=== PATIENT | male | born 1990 | race American Indian/Alaskan Native ===

== ENCOUNTER 2018-01-09 22:19 | Emergency (ER) | payer MEDICAID ==
[2018-01-10 00:50] VITALS: BP 135/67
[2018-01-10] MEDS ORDERED: MOTRIN PO ONE (06:26)
--- NOTE | 2018-01-10 06:26 | Emergency Department Report ---
Chief Complaint: Back Pain/Injury Stated Complaint: BACK PAIN Time Seen by Provider: 01/10/18 06:24 - HPI History of Present Illness: Patient reported that he slipped and fell from ground level yesterday and he injured his tailbone and is having pain to tailbone a 10 out of 10. Denies any head or neck injury. - ROS Review of Systems: All systems are negative unless stated in HPI above - Exam Vital Signs: Vital Signs 01/10/18 00:47 Temperature 98.4 F Pulse Rate 70 Respiratory 16 Rate Blood Pressure 135/67 O2 Sat by Pulse 100 Oximetry Physical Exam: Gen.: This is 27-year-old male well-nourished well-developed nontoxic in appearance that appears to be in pain. Back: No rash, full range of motion. No deformity noted. Patient able to ambulate. Tenderness to palpate to coccyx area MSE screening note: Focused history and physical exam performed. Due to findings the following was ordered: ED Medical Decision Making - Medical Decision Making MDM: Patient screened by medical provider and x-rays ordered. Patient to receive Motrin 800 mg by mouth. He will be seen by oncoming provider. ED Disposition for MSE Condition: Stable Referrals: PRIMARY CARE, [Primary Care Provider] - 3-5 Days
--- NOTE | 2018-01-10 06:57 | XRay Report ---
FINAL REPORT EXAM: XR SPINE SACRUM/COCCYX 2+V HISTORY: fall with tail bone pain 08/22 TECHNIQUE: Three views of the sacrum and coccyx were obtained FINDINGS: There is no evidence of fracture or soft tissue injury. The SI joints appear normal. IMPRESSION: Within normal limits
--- NOTE | 2018-01-10 07:06 | Emergency Department Report ---
ED Back Pain/Injury HPI - General Chief Complaint: Back Pain/Injury Stated Complaint: BACK PAIN Time Seen by Provider: 01/10/18 06:24 Source: patient Limitations: No Limitations - History of Present Illness Initial Comments: Patient reported that he slipped and fell from ground level yesterday and he injured his tailbone and is having pain to tailbone a 10 out of 10. Denies any head or neck injury. Denies any fever or chills. Denies any nausea or vomiting. Denies any loss of bowel or bladder control. Denies any numbness or tingling to her extremities. Pain is achy into his tailbone better rest worse with movement. Denies taking any [id number] pain medication. Denies any difficulty in walk-in. MD Complaint: back pain (patient reports fall with back pain), fall Onset/Timin -: days(s) Similar Symptoms Previously: No Place: street Radiation: none Severity: severe Severity scale (0 -10): 10 Quality: aching Consistency: constant Improves With: immobilization Worsens With: movement, sitting upright, walking Context: fall Associated Symptoms: denies: confusion, weakness, chest pain, numbness, difficulty walking, cough, difficulty urinating, diaphoresis, incontinence, fever/chills, constipation, headaches, malaise, nausea/vomiting, rash, seizure, shortness of breath, syncope Treatments Prior to Arrival: other (none) - Related Data Previous Rx's Medication Instructions Recorded Last Taken Type Acetaminophen/Codeine [Tylenol 1 tab PO Q6H PRN #9 tab 01/10/18 Unknown Rx /Codeine # 3 tab] Ibuprofen [Motrin] 600 mg PO Q8H PRN #12 tablet 01/10/18 Unknown Rx Allergies Allergy/AdvReac Type Severity Reaction Status Date / Time No Known Allergies Allergy Unverified 01/10/18 00:50 ED Review of Systems ROS: Stated complaint: BACK PAIN Other details as noted in HPI Comment: All other systems reviewed and negative Constitutional: no symptoms reported Respiratory: no symptoms reported Cardiovascular: denies: chest pain, palpitations, dyspnea on exertion, edema, syncope, paroxysmal nocturnal dyspnea Gastrointestinal: denies: abdominal pain, nausea, vomiting, constipation Genitourinary: denies: dysuria, hematuria, testicular pain, testicular mass Skin: denies: rash Neurological: denies: headache, weakness, numbness, paresthesias, confusion, abnormal gait, vertigo ED Past Medical Hx - Past Medical History Medical history: no medical history Surgical history: no surgical history Psychiatric history: no pertinent history Family history: no significant family history - Social History Smoking Status: Never Smoker Alcohol use: occasionally Drug use: marijuana ED Back Pain Physical Exam - Exam General: Vital signs noted. No distress. Alert and acting appropriately. This is a 27-year-old male well-nourished well-developed, facial grimace and due to pain per patient. He is nontoxic in appearance Lungs: Clear to auscultate bilaterally, no rhonchi wheezes or rales. Extremity: No Clubbing, cyanosis or edema. +2 pulses in all extremities and no neurovascular compromise Musculoskeletal: Full range of motion to all extremities, ambulating without any difficulties. No abrasion, laceration or contusion noted to extremities. Cardiovascular: S1, S2. Regular rate and rhythm negative murmur Skin: Clean dry and intact. No rashes or lesions. Neurological: Alert and oriented 3, no motor or sensory deficit, gait is normal , negative Romberg, negative pronator drift. GCS is 15. Speech is clear. No facial drooping. Normal reflexes Back/Abdomen: Yes Sacroiliac Tenderness (tender to palpate at coccyx area.), No Abdominal Tenderness (abdomen soft, nontender to palpation in all quadrants and no guarding or rebound tenderness), No Perithoracic Tenderness, No Perilumbar Tenderness, No Flank Tenderness, No Straight Leg Raise Pain (bilaterally) Neuro: Yes Normal Sensation, Yes Normal DTR's, Yes Normal Gait, No Motor Weakness ED Course Vital Signs 01/10/18 00:47 Temperature 98.4 F Pulse Rate 70 Respiratory 16 Rate Blood Pressure 135/67 O2 Sat by Pulse 100 Oximetry - Reevaluation(s) Reevaluation #1: 01/10/18 07:06 Patient received Motrin 800 mg emergency room for coccyx pain we'll relief of pain. Ed Back Pain Tests - Tests Tests: Normal X Rays (x-ray of sacral coccyx reveal no acute findings. Normal exam) ED Medical Decision Making - Radiology Data Radiology results: report reviewed X-ray sacral coccyx reveals normal exam without any acute fracture. - Medical Decision Making ED course: Patient here status post ground level fall yesterday complaining of pain to his tailbone that is tender to 10 and given worse. Physical findings for normal back in neurological exam with some tenderness to palpate the coccyx area. Patient was given Motrin 800 mg emergency room for some relief of pain. Patient had x-rays sacral coccyx which revealed normal examination. This was discussed patient he voiced understanding and I told him he needs to rest for a couple days and I will give him prescription for Motrin for mild pain and Tylenol 3 for moderate to severe pain. Patient discharged home in stable condition with prescription for Motrin and Tylenol 3 and to follow up with [facility] in 2 days. Critical care attestation.: If time is entered above; I have spent that time in minutes in the direct care of this critically ill patient, excluding procedure time. ED Disposition Clinical Impression: Fall from ground level, Pain in the coccyx Disposition: DC-01 TO HOME OR SELFCARE Is pt being admited?: No Does the pt Need Aspirin: No Condition: Stable Instructions: Coccyx Injury (ED), Musculoskeletal Pain (ED) Additional Instructions: Please follow up with outside Medical Center for primary care and status post fall injury Please do not or operate heavy machinery while taking Tylenol No. 3 as this medication causes drowsiness If you develop, loss of bowel or bladder function, increasing pain that is not relieved by medication, difficulty walking and, numbness and tingling to extremities he can return to emergency room. Prescriptions: Acetaminophen/Codeine [Tylenol /Codeine # 3 tab] 1 tab PO Q6H PRN #9 tab PRN Reason: Pain, Moderate (4-6) Ibuprofen [Motrin] 600 mg PO Q8H PRN #12 tablet PRN Reason: Pain Referrals: [facility] [Outside] - 01/11/18 Forms: Work/School Release Form(ED)
== END 2018-01-10 07:30 | disposition home or self-care (01) ==
LOC: ED 22:19
DX: M53.3 Sacrococcygeal disorders, not elsewhere classified (principal); F12.10 Cannabis abuse, uncomplicated; W18.30XA Fall on same level, unspecified, initial encounter; Y93.89 Activity, other specified; Y99.8 Other external cause status; Y92.410 Unspecified street and highway as the place of occurrence of the external cause
CPT/HCPCS: 72220; 99283

== ENCOUNTER 2018-12-28 15:55 | Emergency (ER) | payer MEDICAID ==
[2018-12-28 16:01] VITALS: BP 129/78
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
[2018-12-28] MEDS ORDERED: DECADRON IM ONE (20:47)
[2018-12-28] MEDS ORDERED: REGLAN PO ONE (20:48)
[2018-12-28] MEDS ORDERED: TYLENOL PO ONE (20:48)
[2018-12-28] MEDS ORDERED: BANOPHEN PO ONE (20:48)
[2018-12-28] MEDS ORDERED: BENADRYL PO ONE (21:00)
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
== END 2018-12-28 21:20 | disposition left against medical advice (07) ==
LOC: ED 15:55
DX: R51 Headache (principal); F17.200 Nicotine dependence, unspecified, uncomplicated; V87.7XXA Person injured in collision between other specified motor vehicles (traffic), initial encounter; Y93.89 Activity, other specified; Y92.488 Other paved roadways as the place of occurrence of the external cause; Y99.8 Other external cause status
CPT/HCPCS: 70450; 72125; 99282; J1100